=== PATIENT | male | born 1965 | race American Indian/Alaskan Native ===

== ENCOUNTER 2017-12-27 09:26 | Observation (INO) | payer BC ==
[2017-12-19 12:59] LABS: Basophils % (Auto) 0.3 % (0.0-1.8); Eosinophils # (Auto) 0.1 K/mm3 (0.0-0.4); Eosinophils % (Auto) 2.2 % (0.0-4.3); Hematocrit 49.6 % (35.5-45.6); Hemoglobin 16.9 gm/dl (11.8-15.2); Lymphocytes # (Auto) 2.1 K/mm3 (1.2-5.4); Lymphocytes % (Auto) 35.1 % (13.4-35.0); Mean Corpuscular HGB Conc 34 % (32-34); Mean Corpuscular Hemoglobin 30 pg (28-32); Mean Corpuscular Volume 88 fl (84-94); Monocytes # (Auto) 0.5 K/mm3 (0.0-0.8); Monocytes % (Auto) 8.3 % (0.0-7.3); Platelet Count 154 K/mm3 (140-440); Red Blood Count 5.63 M/mm3 (3.65-5.03); Red Cell Distribution Width 13.9 % (13.2-15.2)
[2017-12-19 13:12] LABS: INR 0.89 (0.87-1.13); Partial Thromboplastin Time 33.2 Sec. (24.2-36.6)
[2017-12-19 13:21] LABS: Alanine Aminotransferase 23 units/L (7-56); Albumin 3.9 g/dL (3.9-5); BUN/Creatinine Ratio 11; Blood Urea Nitrogen 11 mg/dL (9-20); Calcium 9.2 mg/dL (8.4-10.2); Hemolysis Index 16
[~2017-12-27 09:26] MED LIST: GARAMYCIN/NS 80 MG/100 ML 100 ML IV SCH; VANCOMYCIN PHARMACY TO DOSE IV SCH; VANCOMYCIN/NS 1 GM/250 ML 1 GM/250 ML BAG IV SCH
[2017-12-27] MEDS ORDERED: PEPCID PO NR (11:00)
[2017-12-27] MEDS ORDERED: VERSED IV NR (11:00)
[2017-12-27] MEDS ORDERED: LACTATED RINGERS 1,000 ML IV SCH ×2 (11:00→16:00)
[2017-12-27] MEDS ORDERED: SUBLIMAZE ONE ×2 (12:15→14:05)
[2017-12-27] MEDS ORDERED: REGLAN ONE (12:15)
[2017-12-27] MEDS ORDERED: ZOFRAN ONE (12:15)
[2017-12-27] MEDS ORDERED: DIPRIVAN 10 MG/ML IV ONE (12:15)
[2017-12-27] MEDS ORDERED: XYLOCAINE MPF 2% ONE (12:15)
--- NOTE | 2017-12-27 12:44 | Anesthesia Day of Surgery ---
Anesthesia Day of Surgery - Day of Surgery Patient Examined: Yes Patient H&P Reviewed: Yes Patient is NPO: Yes Beta Blockers: Yes Cardiac Clearance: Yes Pulmonary Clearance: Yes Jack's Test: N/A
--- NOTE | 2017-12-27 12:44 | Anesthesia Consultation ---
Anesthesia Consult and Med Hx Date of service: 12/27/17 - Airway Anesthetic Teeth Evaluation: Good ROM Head & Neck: Adequate Mental/Hyoid Distance: Adequate Mallampati Class: Class II Intubation Access Assessment: Probably Good - Pulmonary Exam CTA: Yes - Cardiac Exam Cardiac Exam: RRR - Pre-Operative Health Status ASA Pre-Surgery Classification: ASA3 Proposed Anesthetic Plan: General - Pre-Anesthesia Comment Pre-Anesthesia Comments: 52y M with h/o NIDDM2, HTN, PALLAVI on CPAP, who presents for penile prosthesis. - Pulmonary Hx Smoking: No Hx Sleep Apnea: Yes (DX SLEEP APNEA WITH CPAP USE) - Cardiovascular System Hx Hypertension: Yes (X 5 YRS) Hx Coronary Artery Disease: No - Endocrine Hx Renal Disease: No Hx Liver Disease: No - Other Systems Hx Cancer: No
[2017-12-27] MEDS ORDERED: NEOSPORIN GU IR ONE ×2 (13:15→13:24)
[2017-12-27] MEDS ORDERED: NACL IRRIGATION ONE (13:15)
[2017-12-27] MEDS ORDERED: MARCAINE 0.5% INFILTRATI ONE (13:15)
[2017-12-27] MEDS ORDERED: NACL 0.9% IR ONE (13:15)
[2017-12-27] MEDS ORDERED: NACL ONE (13:24)
[2017-12-27] MEDS ORDERED: MARCAINE 0.5% 30 ML INFILTRATI ONE (13:24)
[2017-12-27] MEDS ORDERED: ePHEDrine 50 MG/5 ML-0.9% NACL IV ONE (13:25)
[2017-12-27] MEDS ORDERED: LACTATED RINGERS 1,000 ML ONE (14:12)
[2017-12-27] MEDS ORDERED: ZOFRAN IV PRN ×2 (15:11→15:14)
[2017-12-27] MEDS ORDERED: DILAUDID IV PRN (15:11)
--- NOTE | 2017-12-27 15:13 | Short Stay Summary ---
Short Stay Documentation Date of service: 12/27/17 - History H&P: obtained from office - Allergies and Medications Current Medications: Allergies No Known Allergies Allergy (Verified 12/11/17 17:22) Home Medications Medication Instructions Recorded Confirmed Last Taken Type Chlorthalidone [Thalitone] 25 mg PO QDAY 12/19/17 12/19/17 Unknown History Metoprolol [Lopressor] 100 mg PO DAILY 12/19/17 12/19/17 Unknown History Potassium Citrate [Potassium 10 meq PO BID 12/19/17 12/19/17 Unknown History Citrate ER] metFORMIN [Glucophage] 500 mg PO QDAY 12/19/17 12/19/17 Unknown History Active Medications Famotidine (Pepcid) 20 mg PO PREOP NR Stop: 12/27/17 23:00 Last Admin: 12/27/17 11:56 Dose: 20 mg Gentamicin Sulfate/Sodium Chloride (Garamycin/Ns 80 Mg/100 Ml) 100 mls @ 200 mls/hr IV PREOP BENJAMIN Stop: 12/27/17 23:59 Vancomycin HCl (Vancomycin/Ns 1 Gm/250 Ml) 1 gm in 250 mls @ 166.667 mls/hr IV PREOP BENJAMIN Stop: 12/27/17 23:59 Last Admin: 12/27/17 13:05 Dose: 166.667 mls/hr Lactated Ringer's (Lactated Ringers) 1,000 mls @ 75 mls/hr IV DIRECT BENJAMIN Last Admin: 12/27/17 11:55 Dose: 75 mls/hr Midazolam HCl (Versed) 2 mg IV PREOP NR Stop: 12/27/17 23:59 Last Admin: 12/27/17 12:07 Dose: 2 mg Vancomycin HCl (Vancomycin Pharmacy To Dose) 1 each IV PKCONSULT BENJAMIN - Brief post op/procedure progress note Date of procedure: 12/27/17 Pre-op diagnosis: ed Post-op diagnosis: same Procedure: ipp -----21 + 3 cm RTE, scrotaplasty, pharmacologic injection Anesthesia: GETA Surgeon: DEEPTHI MONTELONGO Estimated blood loss: minimal Pathology: list (scrotal skin) Specimen disposition: to lab - Hospital course Hospital course: pt has norco & cipro post op info on chart removed dressing/galdamez out dc home - Disposition Condition at discharge: Stable Short Stay Discharge Plan Follow up with: VICTORIANO MIRANDA MD [Primary Care Provider] - 7 Days
[2017-12-27] MEDS ORDERED: TYLENOL PO PRN (15:14)
[2017-12-27] MEDS ORDERED: AMBIEN PO PRN (15:14)
[2017-12-27] MEDS ORDERED: D50W (25GM) Syringe IV PRN (15:14)
[2017-12-27] MEDS ORDERED: MORPHINE IV PRN (15:14)
[2017-12-27] MEDS ORDERED: SODIUM CHLORIDE FLUSH SYRINGE 10 ML IV PRN (15:14)
[2017-12-27] MEDS ORDERED: NARCAN 0.4 MG/1 ML IV PRN (15:14)
--- NOTE | 2017-12-27 15:53 | Operative Report ---
PREOPERATIVE DIAGNOSIS: Erectile dysfunction. POSTOPERATIVE DIAGNOSES: Erectile dysfunction, redundant scrotal skin. PROCEDURE: Insertion of inflatable penile prosthesis (21 cm CX inflatable penile prosthesis) with 3 cm rear tip computer support technician, pharmacologic injection of corporal body and scrotoplasty. SURGEON: Zenon Craft MD REHABILITATION PHYSICIAN: Maggy Blancas. ANESTHESIA: General. ESTIMATED BLOOD LOSS: Minimal. FLUIDS: Crystalloid. COMPLICATIONS: No complications. INDICATIONS: This patient is a 52-year-old gentleman seen in the office for refractory erectile dysfunction to medical management, discussed options, reviewed all the options. He agreed to proceed with surgical intervention. He has a history of hypertension, diabetes. He has been seen by Dr. Iron Nathan and Dr. Amauri Hung. DESCRIPTION OF PROCEDURE: The patient was taken to the operative suite, placed in a supine position. After adequate general anesthesia was prepped and draped in a sterile fashion. Benitez catheter was placed on the operative field. A 0.25% Marcaine was injected into the corporal body. No obvious plaque, which should also was used for postoperative pain. Penis measured 16 cm in length from the pubic bone. Trans scrotal incision was made, dissection exposed the corporal body. Stay sutures were placed. Corporotomies were made. Mild dilation with dilator was performed. Measurements revealed a total of 24 cm and therefore a 21 cm CX device was used with 3 cm rear tip extenders. 100 cm reservoir was prepped, placed in the retropubic space via the right external ring, 100 mL of fluid, saline was placed, no back pressure. The device and rear tip extenders were prepped, placed in the penis . Testing revealed adequate erection. The patient did have some scarring, some mild mottling was performed as well. The reservoir was connected to the pump with the quick-click connection system. Insufflation again revealed an excellent erection. The pump was then placed in the dependent portion of the scrotum. Pursestring 2-0 Vicryl was used for the dartos layer and then it was closed in a running fashion. The redundant skin was trimmed to reduce the dog ears and the skin was then closed with 3-0 Vicryl in interrupted fashion. Collodion was placed, mummy wrap placed as well. The patient tolerated the procedure well. He was extubated and taken to recovery room. He will be observed overnight. He has his prescriptions for Medon and Cipro. JOB# [id number] PEDRO LUISC/NTS
--- NOTE | 2017-12-27 15:53 | Post Anesthesia Evaluation ---
- Post Anesthesia Evaluation Patient Participated: Yes Airway Patent: Yes Stable Respiratory Function: Yes Nausea/Vomiting: No Temp > 96.8F: Yes Pain Manageable: Yes Adequeate Hydration: Yes Anesthesia Complications: No Block Receding Appropriately: Not Applicable Patient on Ventilator: No
[2017-12-27] MEDS ORDERED: VANCOMYCIN/NS 1 GM/250 ML 1 GM/250 ML BAG IV SCH (16:00)
[2017-12-27] MEDS ORDERED: VANCOMYCIN PHARMACY TO DOSE IV SCH (16:00)
[2017-12-27] MEDS ORDERED: NACL 0.9% 1000 ML 1,000 ML ONE (18:10)
[2017-12-27] MEDS: NORCO 5/325 PO PRN (19:09)
[2017-12-27] MEDS ORDERED: POTASSIUM CITRATE 10 MEQ PO SCH (22:00)
[2017-12-27] MEDS ORDERED: SODIUM CHLORIDE FLUSH SYRINGE 10 ML IV SCH (22:00)
[2017-12-27] MEDS: NACL 0.45% 1000 ML 1,000 ML IV SCH (22:00)
[2017-12-28] MEDS: UROCIT K PO SCH ×4 (00:24→08:51)
[2017-12-28] MEDS ORDERED: VANCOMYCIN 1,500 MG in NACL 0.9% 500 ML 500 ML IV SCH (04:00)
[2017-12-28] MEDS: NACL 0.45% 1000 ML 1,000 ML IV SCH (04:20)
--- NOTE | 2017-12-28 07:16 | Consultation ---
History of Present Illness - Reason for Consult Consult date: 12/28/17 med management Requesting physician: DEEPTHI MONTELONGO - History of Present Illness 52y M with h/o NIDDM2, HTN, PALLAVI on CPAP, who presents for penile prosthesis. Urology consulted hospitalist service for medical management postoperatively. Patient with no complaints. Past History Past Medical History: diabetes, hypertension, other (PALLAVI) Past Surgical History: No surgical history Social history: no significant social history Family history: no significant family history Medications and Allergies Allergies Allergy/AdvReac Type Severity Reaction Status Date / Time No Known Allergies Allergy Verified 12/11/17 17:22 Home Medications Medication Instructions Recorded Confirmed Last Taken Type Chlorthalidone [Thalitone] 25 mg PO QDAY 12/19/17 12/19/17 Unknown History Metoprolol [Lopressor] 100 mg PO DAILY 12/19/17 12/19/17 Unknown History Potassium Citrate [Potassium 10 meq PO BID 12/19/17 12/19/17 Unknown History Citrate ER] metFORMIN [Glucophage] 500 mg PO QDAY 12/19/17 12/19/17 Unknown History Active Meds: Active Medications Acetaminophen (Tylenol) 650 mg PO Q4H PRN PRN Reason: Pain MILD(1-3)/Fever >100.5/FOFANA Acetaminophen/Hydrocodone Bitart ([place] 5/325) 2 each PO Q6H PRN PRN Reason: Pain, Moderate (4-6) Last Admin: 12/27/17 19:09 Dose: 2 each Chlorthalidone (Thalitone) 25 mg PO QDAY BENJAMIN Dextrose (D50w (25gm) Syringe) 50 ml IV PRN PRN PRN Reason: Hypoglycemia Lactated Ringer's (Lactated Ringers) 1,000 mls @ 75 mls/hr IV DIRECT BENJAMIN Last Admin: 12/27/17 11:55 Dose: 75 mls/hr Lactated Ringer's (Lactated Ringers) 1,000 mls @ 42 mls/hr IV DIRECT BENJAMIN Sodium Chloride (Nacl 0.45% 1000 Ml) 1,000 mls @ 125 mls/hr IV DIRECT BENJAMIN Last Admin: 12/28/17 04:20 Dose: 125 mls/hr Vancomycin HCl (Vancomycin/Ns 1 Gm/250 Ml) 1 gm in 250 mls @ 167.007 mls/hr IV ONCE BENJAMIN; Protocol Vancomycin HCl 1,500 mg/ (Sodium Chloride) 515 mls @ 333.333 mls/hr IV Q12H ON LICENSE OF [facility] Last Admin: 12/28/17 04:20 Dose: 333.333 mls/hr Metformin HCl (Glucophage) 500 mg PO QAMDIAB ON LICENSE OF [facility] Metoprolol Tartrate (Lopressor) 100 mg PO DAILY ON LICENSE OF [facility] Morphine Sulfate (Morphine) 2 mg IV Q4H PRN PRN Reason: Pain, Moderate (4-6) Naloxone HCl (Narcan 0.4 Mg/1 Ml) 0.1 mg IV Q2MIN PRN PRN Reason: Res Rate </= 8 or 02 SAT < 92% Ondansetron HCl (Zofran) 4 mg IV ONCE PRN PRN Reason: Nausea And Vomiting Ondansetron HCl (Zofran) 4 mg IV Q8H PRN PRN Reason: Nausea And Vomiting Potassium Citrate (Urocit K 5) 10 meq PO BID ON LICENSE OF [facility] Last Admin: 12/28/17 04:28 Dose: Not Given Sodium Chloride (Sodium Chloride Flush Syringe 10 Ml) 10 ml IV BID ON LICENSE OF [facility] Last Admin: 12/28/17 01:01 Dose: 10 ml Sodium Chloride (Sodium Chloride Flush Syringe 10 Ml) 10 ml IV PRN PRN PRN Reason: LINE FLUSH Vancomycin HCl (Vancomycin Pharmacy To Dose) 1 each IV PKCONSULT ON LICENSE OF [facility] Zolpidem Tartrate (Ambien) 5 mg PO QHS PRN PRN Reason: Insomnia Review of Systems All systems: negative Exam - Constitutional Vitals: Temp Pulse Resp BP Pulse Ox 97.7 F 86 17 125/79 97 12/28/17 05:00 12/28/17 05:00 12/28/17 05:00 12/28/17 05:00 12/28/17 05:00 General appearance: Present: no acute distress, well-nourished - EENT Eyes: Present: PERRL ENT: hearing intact, clear oral mucosa - Neck Neck: Present: supple, normal ROM - Respiratory Respiratory effort: normal Respiratory: bilateral: CTA - Cardiovascular Heart Sounds: Present: S1 & S2. Absent: rub, click - Extremities Extremities: pulses symmetrical, No edema Peripheral Pulses: within normal limits - Abdominal General gastrointestinal: Present: soft, non-tender, non-distended, normal bowel sounds Male genitourinary: Present: normal - Integumentary Integumentary: Present: clear, warm, dry - Musculoskeletal Musculoskeletal: gait normal, strength equal bilaterally - Psychiatric Psychiatric: appropriate mood/affect, intact judgment & insight - Neurologic Neurologic: CNII-XII intact, moves all extremities Results - Labs CBC & Chem 7: 12/19/17 12:00 12/19/17 12:00 Assessment and Plan s/p scrotoplasty/penile prosthesis. Per urology Hypertension. Continue home and stopped his medications. PALLAVI. Continue CPAP. Diabetes mellitus type 2. Continue Accu-Cheks and sliding scale as some. Disposition. Anticipate discharge home today.
[2017-12-28] MEDS ORDERED: GLUCOPHAGE PO SCH (08:00)
[2017-12-28 08:38] VITALS: BP 135/85
[2017-12-28] MEDS: NORCO 5/325 PO PRN (08:42)
[2017-12-28] MEDS ORDERED: THALITONE PO SCH (10:00)
[2017-12-28] MEDS ORDERED: LOPRESSOR PO SCH (10:00)
== END 2017-12-28 11:26 | disposition home or self-care (01) ==
LOC: OR 09:26 → 3B-SURG 15:14
PROVIDERS: ADMIT Urology; ATTEND Urology
DX: N52.9 Male erectile dysfunction, unspecified (principal)
CPT/HCPCS: 36415; 55180; 80053; 82962; 85025; 85610; 85730; 88305; 96365; 96366; 96375; C1813; G0378; J1170; J2405; J2704; J2765; J3010; J3370; J7030; J7040; J7120